=== PATIENT | female | born 1990 | race Caucasian/White ===

== ENCOUNTER 2024-09-20 15:52 | Outpatient (CLI) | payer BC, SELFPAY ==
--- NOTE | 2024-09-20 16:00 | CRLHL7_ITS ---
For Patients: As a result of the Cures Act, medical imaging exams and procedure reports are released immediately into your electronic medical record. You may view this report before your referring provider. If you have questions, please contact your health care provider. OB ULTRASOUND INDICATION: Dating and viability. TECHNIQUE: Real time grayscale imaging of the fetus was performed. Transvaginal. LMP: 07/25/2024. IRENE by LMP: 05/01/2025. GA: 8 w, 1 d. Previous US: No. CRL: 2.0 cm. 8 w 4 d. IRENE: 04/28/2025. FHR: 173 BPM. Gestational sac: 3.7 cm. Appears within normal limits. Yolk sac: 2.4 mm. Appears within normal limits. Right ovary: 3.8 x 1.9 x 1.9 cm. CL. Left ovary: 2.1 x 1.4 x 1.2 cm. IMPRESSION: Single living intrauterine with sonographic gestational age 8 weeks 4 days and sonographic due date 04/28/2025. Evan Alvarez M.D. Diagnostic Radiologist [email or web address]/Dictated by: Evan Alvarez MD @ 09/21/2024 8:27:00 AM (Electronically Signed)
== END 2024-09-20 15:53 | disposition home or self-care (01) ==
PROVIDERS: PCP Family Medicine; Visit Provider Registered Nurse
DX: Z34.91 Encounter for supervision of normal pregnancy, unspecified, first trimester (principal); Z3A.08 8 weeks gestation of pregnancy
CPT/HCPCS: 76817

== ENCOUNTER 2024-09-20 16:36 | Outpatient (CLI) | payer BC, SELFPAY ==
[2024-09-23 08:36] LABS: HPV Source Cervix; HPV, High Risk by TMA Not Detected
== END 2024-09-20 16:37 | disposition home or self-care (01) ==
PROVIDERS: PCP Family Medicine; Visit Provider Registered Nurse
DX: Z34.81 Encounter for supervision of other normal pregnancy, first trimester (principal); Z67.30 Type AB blood, Rh positive
CPT/HCPCS: 83020; 83021; 84443; 85660; 86592; 86703; 86704; 86706; 86762; 86787; 86803; 86850; 86900; 86901; 87086; 87340; 87624; 87625; 88141; 88142

== ENCOUNTER 2024-11-14 09:47 | Outpatient (CLI) | payer BC, SELFPAY | END 2024-11-14 09:48 | disposition home or self-care (01) | LOC: NFLDREF 11-18 01:34 | PROVIDERS: PCP Family Medicine; Referring Provider Family Medicine; Visit Provider Midwife | DX: O99.282 Endocrine, nutritional and metabolic diseases complicating pregnancy, second trimester (principal); E03.9 Hypothyroidism, unspecified; Z3A.16 16 weeks gestation of pregnancy | CPT/HCPCS: 84443 ==

== ENCOUNTER 2024-11-30 17:00 | Outpatient (CLI) | payer BC, SELFPAY | END 2024-11-30 17:01 | disposition home or self-care (01) | LOC: NFLDREF 17:02 | PROVIDERS: PCP Family Medicine; Visit Provider Advanced Practice Midwife | DX: Z34.92 Encounter for supervision of normal pregnancy, unspecified, second trimester (principal); R53.83 Other fatigue | CPT/HCPCS: 82728 ==

== ENCOUNTER 2024-12-12 07:07 | Outpatient (CLI) | payer BC, SELFPAY ==
--- NOTE | 2024-12-12 07:15 | CRLHL7_ITS ---
For Patients: As a result of the 21st Century Cures Act, medical imaging exams and procedure reports are released immediately into your electronic medical record. You may view this report before your referring provider. If you have questions, please contact your health care provider. OB ULTRASOUND SURVEY IRENE by LMP: 05/01/2025. GA: 20 w, 0 d. INDICATION: BFAS. TECHNIQUE: Real time grayscale imaging of the fetus was performed. Evaluate anatomy. Transabdominal imaging performed. position: Multiple positions. Cervix: Visualized. Technique: Transabdominal. Length of closed cervix: 4.6 cm. Placenta/cord: Fundal. Technique: Transabdominal. Placenta tip to internal OS: 8.8 cm. Umbilical Cord: 3-vessel cord. Placenta insertion: Central. Amniotic Fluid: 4 cm SDP (greater than/equal to: 2- less than 8 cm). SURVEY: Observed Structures. Calvarium/Spine: Cerebellum: 2 cm, 20 w 3 d. Cisterna Magna: 4.3 mm. Nuchal Fold: 4.3 mm. Lateral Ventricle: 7.6 mm. CSP: Yes. Midline Falx: Yes. Choroid Plexus: Yes. Spine: Yes. Abdomen: Stomach: Yes. Abd Cord Insertion: Yes. Urinary Bladder: Yes. Kidneys: Yes. Diaphragm: Yes. Face: Nose/lips: Yes. Orbital view: Yes. Profile: Yes. Limbs: Upper Extremities: Yes. Lower Extremities: Yes. Hands: Yes. Feet: Yes. Vascular: 4-Chamber Heart: Yes. LVOT: Yes. RVOT: Yes. 3VV: Yes. 3VTV: Yes. BPD: 4.8 cm. 20 w, 4 d, 72 percent. HC: 17.8 cm. 20 w, 2 d, 54 percent. AC: 16 cm. 21 w, 1 d, 78 percent. FL: 3.2 cm. 20 w, 1 d, 46 percent. FL/AC ratio: 20.30 percent. HC/AC ratio: 1.11. heart rate: 134 bpm. age by this US: 20 w, 4 d. IRENE by this US: 04/27/2025. EFW: 364 g. Weight: 13 oz. Percentile by IRENE: 78 percent. IMPRESSION: 1. Concordance of clinical and sonographic dating. 2. Normal anatomic survey. Evan Alvarez M.D. Diagnostic Radiologist [email or web address] [email or web address]/[email or web address] jj/Dictated by: Evan Alvarez MD @ 12/12/2024 9:14:00 AM (Electronically Signed)
== END 2024-12-12 07:08 | disposition home or self-care (01) ==
LOC: US 07:08
PROVIDERS: PCP Family Medicine; Visit Provider Midwife
DX: Z34.92 Encounter for supervision of normal pregnancy, unspecified, second trimester (principal); Z3A.20 20 weeks gestation of pregnancy
CPT/HCPCS: 76805

== ENCOUNTER 2025-01-09 08:19 | Outpatient (CLI) | payer BC, SELFPAY | END 2025-01-09 08:20 | disposition home or self-care (01) | PROVIDERS: PCP Family Medicine; Visit Provider Midwife | DX: E03.9 Hypothyroidism, unspecified (principal); R53.83 Other fatigue; F41.9 Anxiety disorder, unspecified | CPT/HCPCS: 84439; 84443; 84481 ==

== ENCOUNTER 2025-02-06 10:29 | Outpatient (CLI) | payer BC, SELFPAY | END 2025-02-06 10:30 | disposition home or self-care (01) | LOC: NFLDREF 02-09 16:54 | PROVIDERS: PCP Family Medicine; Referring Provider Family Medicine; Visit Provider Midwife | DX: Z34.92 Encounter for supervision of normal pregnancy, unspecified, second trimester (principal) | CPT/HCPCS: 86592 ==

== ENCOUNTER 2025-03-21 14:14 | Outpatient (CLI) | payer BC, SELFPAY | END 2025-03-21 14:15 | disposition home or self-care (01) | PROVIDERS: PCP Family Medicine; Visit Provider Advanced Practice Midwife | DX: E03.9 Hypothyroidism, unspecified (principal) | CPT/HCPCS: 84439; 84443; 84481 ==

== ENCOUNTER 2025-04-03 15:43 | Outpatient (CLI) | payer BC, SELFPAY ==
[2025-04-04 14:49] LABS: Strep B DNA Probe Negative (Negative)
[2025-04-04 14:56] LABS: Strep B Susceptibility Needed? No
== END 2025-04-03 15:44 | disposition home or self-care (01) ==
LOC: NFLDREF 15:44
PROVIDERS: PCP Family Medicine; Visit Provider Advanced Practice Midwife
DX: Z34.93 Encounter for supervision of normal pregnancy, unspecified, third trimester (principal)
CPT/HCPCS: 87081; 87653

== ENCOUNTER 2025-04-17 14:10 | Outpatient (CLI) | payer BC, SELFPAY ==
[2025-04-17 14:37] VITALS: BP 117/56; PULSE 67; PULSE 70; O2SAT 95
[2025-04-17] MEDS: TERBUTALINE 1 MG/ML INJ 0.25 MG SUBCUT (15:32)
--- NOTE | 2025-04-17 18:01 | PM.PROC ---
Procedure Note Date Seen: 04/17/25 Date of procedure: 04/17/25 Will [facility] bill your pro fee for this procedure?: Yes Pre-op diagnosis: 1. 38 0/7 weeks gestation. 2. yoan breech presentation. Post-op diagnosis: other (1. 38 0/7 weeks gestation. 2. Vertex presentation.) Procedure: External cephalic version. Procedure Description: FINDINGS: Nonstress test: heart rate baseline 150 beats per minute, good variability, 15 x 15 accelerations present, no decelerations, category 1. Limited OB ultrasound using transabdominal transducer: Single, living, intrauterine gestation in a yoan breech presentation with the head in the maternal right upper quadrant, back along the maternal left, grossly normal amniotic fluid volume, fundal placenta. PROCEDURE NOTE: A nonstress test was performed, which was reactive and reassuring. A limited OB ultrasound was performed at the bedside to determine position. Findings noted above. Informed consent was obtained for external cephalic version. Terbutaline 0.25 mg was administered to the patient subcutaneously. External cephalic version was attempted. I applied downward pressure to the head, Jaimee Steen CNM applied upward pressure to the breech, and we attempted to gently coax the fetus in a backward roll in a counter-clockwise direction. This attempt was successful. heart tones were noted to be normal following the successful external cephalic version. The patient tolerated the procedure well. monitoring after the procedure was continued to be reassuring. Anesthesia: none Surgeon: Angelia Cortes MD Foreign Language Teacher: Jaimee Steen Condition: stable Disposition: same day
--- NOTE | 2025-04-17 18:39 | PC.OBNST ---
NST Note NST Note Start: 04/17/25 14:16 Freq: ONCE Status: Active Protocol: Document 04/17/25 18:25 MARTHA (Rec: 04/17/25 18:39 MARTHA No Response) NST Note 3 Para (# of births) 2 EDC 05/01/25 Gestational Age In 38 Weeks & 0 Days Weeks & Days Patient Presented Other with Complaint(s) of Other Complaints ECV Reactive Yes Appropriate for Yes Gestational Age OLIVIA Bowman, RNC Date 04/17/25 Reactive Yes Appropriate for Yes Gestational Age OLIVIA Haynes, RNC Date 04/17/25 OB NST charge Yes Complete NST Note Yes via Write Note The provider's electronic signature indicates the NST is reactive/appropriate for gestational age. *Note to provider: If an addendum is required, open the patient's chart and click on the note under the Nurse/Allied Health tab.
== END 2025-04-17 18:32 | disposition home or self-care (01) ==
LOC: OB 17:10 → OB CLI 17:17 → OB 17:17
PROVIDERS: PCP Family Medicine; Visit Provider Obstetrics & Gynecology
DX: O32.1XX0 Maternal care for breech presentation, not applicable or unspecified (principal); Z3A.38 38 weeks gestation of pregnancy
CPT/HCPCS: 59025; 59412; G0463; J3105

== ENCOUNTER 2025-04-24 10:17 | Inpatient (IN) | payer BC, SELFPAY ==
[2025-04-24] VITALS (52 sets, daily range): BP systolic 98–132; BP diastolic 51–83; PULSE 40–181; RESP 18–20; TEMP 36.4–37; O2SAT 77–100
--- NOTE | 2025-04-24 10:20 | W.PM.LDBA ---
Subjective History of Present Illness Date Seen: 04/24/25 Narrative: Patient is being admitted to Labor and Delivery for active labor. She is a 34 year old at 39 0/7 weeks gestation. Her full history and physical was dictated by Radha HOLLY on 04/10/2025. Please see this for details. She is supported in her labor by Abel. Contractions were irregular through the night. They have picked up intensity since 3 AM. No LOF, vaginal bleeding or concerns about movement. Specific Issues/Plans : Abel Kids: Simon Lindsey 3 P 2001 H&P done by Karen Lima CNM on 04/10/25 Ask about AMTSL and pp BC # Hypothyroidism. Currently taking levothyroxine 100 mcg Thursday through and 50 mcg Thursday through Thursday as well as Liothyronine 10mg daily. TSH ordered. TSH at 16 week visit: Dose changed to 100 mcg daily 11/17 (recheck in 6w) TSH at 24w visit: o.613. No dose change TSH 3rd trimester (34w): # OCD and anxiety. Well managed with fluvoxamine 100mg daily. History of anxiety. Consider increasing dose in the 3rd trimester. Increased Fluvoxamine to 150 mg 03/21, can increase to 200 mg if needed. # Right inguinal lymphadenopathy present. Stable, mobile, nontender. # Varicella nonimmune. Recommend vaccine. # Unstable lie-Breech at 38.0 weeks. ECV scheduled. oblique at 32 weeks, vertex but high in pelvis at 34 Imaginst tri US: 09/20/24 Single living intrauterine with sonographic gestational age 8 weeks 4 days and sonographic due date 04/28/2025. Vaccinations: COVID: 03/07/25 Flu: 03/07/25 Tdap: [] RSV: 03/07/25 32 week mental health: [] Last pap: At 1st OB OB - Problem Based A/P Additional Plan (1) Active labor at term: Status: Acute (2) Supervision of other normal : Status: Acute Plan ASSESSMENT:?? 34 at 39 0/7 weeks gestation?? complicated by:??OCD and anxiety, breech presentation (successful version), hypothyroidism Labor type: spontaneous, Active labor?? Category 2 FHR pattern.??? Labor complicated by: none?? GBS negative? PLAN:?? 1. Routine intrapartum cares as ordered. Continue with expectant management?? 2. Monitoring per policy, continuous, until criteria met for intermittent management 3. Planning unmedicated . Candidate for analgesia of choice.??? 4. Patient encouraged to reposition and ambulate to promote physiologic labor and .?? 5. Anticipate ? OB Exam Physical Exam Vital signs: Pulse BP Pulse Ox 78 125/60 96 04/24/25 09:50 04/24/25 09:50 04/24/25 09:43 Narrative: Vitals Reviewed Constitutional:? Alert and oriented x3 HEENT:? Normocephalic, atraumatic Neck:? Supple Lungs:? Clear to auscultation bilaterally Heart:? Regular rate and rhythm, no murmur, rub or gallop Abdomen:? Soft, nontender, and gravid. Vertex by Justen's, confirmed with bedside US. Extremities:? No edema or erythema Cervix: 6 cm/90%/-2 station/vertex NST: 135 bpm/moderate variability/accelerations present/variable deceleration x 1/contractions noted irreg
[2025-04-24] MEDS: LACTATED RINGERS 1000 ML 1,000 ML 1200 ML IV ×2 (10:57→11:46)
[2025-04-24 11:03] LABS: Hematocrit* 39.9 % (33.0-51.0); Hemoglobin* 13.7 gm/dL (12.0-16.0); Immature Granulocytes Pct Auto 0.4 %; Mean Corpuscular HGB Conc 34 gm/dL (32-36); Mean Corpuscular Hemoglobin 31 pg (26-34); Mean Corpuscular Volume 90 fL (80-100); RDW Coefficient of Variation % 13.0 % (11.5-15.5); Red Blood Count* 4.42 m/uL (4.00-5.20); White Blood Count* 11.26 K/uL (4.50-11.00)
[2025-04-24 11:06] LABS: Immature Granulocytes Abs Auto 0.00 K/uL (0.00-0.30); Lymphocytes Absolute Auto 1.30 K/uL (0.90-2.90); Slide Review Reflex No
[2025-04-24] MEDS: ROPIVACAINE 0.2% 100 ml 100 ML 12 MG EPIDURAL (11:33)
[2025-04-24] MEDS: LIDOCAINE 2% (PF) 5 ML VIAL EPIDURAL (11:33)
--- NOTE | 2025-04-24 11:52 | PM.ANBPRC ---
[facility] Medical History PCOS (polycystic ovarian syndrome) ?E28.2 - Polycystic ovarian syndrome (ICD-10) Hypothyroid ?E03.9 - Hypothyroidism, unspecified (ICD-10) Anxiety and depression ?F41.9 - Anxiety disorder, unspecified (ICD-10) ?F32.A - Depression, unspecified (ICD-10) OCD (obsessive compulsive disorder) ?F42.9 - Obsessive-compulsive disorder, unspecified (ICD-10) Insomnia ?G47.00 - Insomnia, unspecified (ICD-10) Anemia ?D64.9 - Anemia, unspecified (ICD-10) depression ?F53.0 - depression (ICD-10) Low ferritin ?R79.0 - Abnormal level of blood mineral (ICD-10) Family History Mother Arthritis Thyroid disease Grandmother Heart disease COPD (chronic obstructive pulmonary disease) Other Stroke Social History What is your current living situation?: I presently have a place to live Problems where you live: pests, such as bugs, ants, or mice In the past 12 months, utilities in danger of being shut off: no In past 12 months, lack of transportation kept you from medical appts, meetings, work, or getting things needed for daily living: no In the past 12 mos, have been you worried that your food would run out before you had money to buy more?: never true In the past 12 mos, the food you bought just didn't last and you didn't have money to buy more?: never true Smoking Status: Never smoker How often does anyone, including family, friends and others, physically hurt you: never How often does anyone, including family, friends and others, insult or talk down to you: never How often does anyone, including family, friends and others, threaten you with harm: never How often does anyone, including family, friends and others, scream or curse at you: never Health Related Social Needs: Inadequate housing (Z59.1) Meds Home Medications and Allergies Home Medications ?Medication ?Instructions ?Recorded ?Confirmed ?Type cholecalciferol (vitamin D3) 75 75 mcg PO QDAY 09/20/24 04/24/25 History mcg (3,000 unit) tablet docosahexaenoic acid 200 mg 200 mg PO QDAY 09/20/24 04/24/25 History capsule ( DHA) mv-min-vit C 1,000 mg-elderberry 1 ea PO QDAY 09/20/24 04/24/25 History 50 mg-herb 35.5mg effervescent tablet (Airborne Elderberry) levothyroxine 100 mcg tablet 100 mcg PO QDAY #90 tabs 11/17/24 04/24/25 Rx cyanocobalamin-liver extract tablet 1 tab PO QDAY 12/12/24 04/24/25 History fluvoxamine 100 mg tablet 100 mg PO QPM #90 tabs 02/06/25 04/24/25 Rx liothyronine 5 mcg tablet 5 mcg PO BID #180 tabs 02/13/25 04/24/25 Rx fluvoxamine 50 mg tablet 50 mg PO QDAY #60 tabs 03/21/25 04/24/25 Rx magnesium glycinate 200 mg PO QDAY 03/21/25 04/24/25 History Allergies Allergy/AdvReac Type Severity Reaction Status Date / Time No Known Drug Allergies Allergy Verified 04/17/25 14:23 Results Labs Labs: Laboratory Results - last 24 hr 04/24/25 10:55 WBC 11.26 H RBC 4.42 Hgb 13.7 Hct 39.9 MCV 90 MCH 31 MCHC 34 RDW Coeff of Michelle 13.0 Plt Count 186 Neut % (Auto) 78.8 H Lymph % (Auto) 11.7 L Smyth % (Auto) 8.3 Eos % (Auto) 0.5 Baso % (Auto) 0.3 Neut # (Auto) 8.90 H Lymph # (Auto) 1.30 Smyth # (Auto) 0.90 Eos # (Auto) 0.10 Baso # (Auto) 0.00 Abs Immat Gran (auto) 0.00 Imm/Tot Granulo (auto) 0.4 Vital Signs Vital Signs: Last Vital Signs Pulse 73 04/24/25 11:52 BP 117/65 04/24/25 11:52 Pulse Ox 100 04/24/25 11:51 Weight: 79.379 kg Anesthesia Procedures Epidural Insertion Patient Location: OB Start Time: 11:15 Stop Time: 11:50 Start Date: 04/24/25 Stop Date: 04/24/25 Reason for Block: procedure for pain Patient Position: sitting Performed By: Shira Parks Preanesthetic Checklist: IV checked, site marked, risks and benefits discussed, monitors and equipment checked, pre-op evaluation, timeout performed and anesthesia consent Prep: chlorhexidine gluconate Monitoring: blood pressure monitoring, continuous pulse oximetry and heart rate Approach: midline Vertebral Space: lumbar (1-5) Epidural Technique: SANDI saline Needle Type: Tuohy needle Injection Technique: continuous catheter Needle gauge: 17 Needle Length (cm): 10 cm Needle Insertion Depth (cm): 6 Catheter Gauge: 19 Catheter Type: multi-orifice Catheter at skin depth (cm): 14 Test Dose Result: negative and lidocaine 1.5% with epinephrine 1 to 200,000
--- NOTE | 2025-04-24 13:46 | W.PM.OBVAGDE ---
OB Procedure Vag Delivery Mother Details Mother Details: The patient is a 34 year-old, 3, Para 2, admitted on 04/24/25 at 39 0/7 weeks gestation. Admission Date: 04/24/25 Additional Details Amniotic Membrane Status: SROM (with VE when complete) Amniotic Membrane Rupture Date: 04/24/25 Amniotic Membrane Rupture Time: 13:14 Amniotic Membrane Fluid Description: Clear Analgesia/Anesthesia Type: Epidural Waterbirth: No Pitcoin: No Intrapartal Events: None Labor Onset: 03:00 Complete: 13:11 Pushin:11 Heart: heart tones during second stage were cat 2 with some variables. Moderate variability through out and short 2nd stage. Delivery Details Delivery Date: 04/24/25 Delivery Time: 13:23 Route of delivery: Gender: Male Viability: Alive; Heart Rate Present Position at Delivery: OA Delivery Details: Patient was admitted for?active labor?and progressed beautifully. she has had natural labor in the past and this time wanted an epidural. She was just feeling like she wasn't in the right mood for it today. She received a successful epidural. SROM with VE at complete dilation noted at?1311?with clear fluid. Patient was complete at?1311?and?pushing?at?1311. of?a viable?male at?1323?in Left lateral. Vertex?delivered?OA. No nuchal cord or shoulder dystocia.?Body?delivered easily and without incident.?Infant?passed to?mothers?abdomen with a vigorous cry. Cord was clamped and cut at > 5 minutes. APGARS were?8?at one minute and?9?at five?minutes?respectively.?Mouth?was bulb?suctioned by nursing. Intact placenta with a?3 vessel?cord delivered spontaneously at?1330. Fundus firm. 1st degree perineal laceration identified?and oozing, repaired in typical fashion. QBL?100?cc. Mother and baby stable; mother plans to breastfeed. Infant weight pending.? ? 1 Minute Interval Total Score: 8 5 Minute Interval Total Score: 9 Additional Details Shoulder Dystocia: No Placenta Delivery Time: 13:30 Placental Delivery Description: Spontaneous Delivery repair: Vicryl Procedure Done: Global Blood Loss: 100 Laceration: Perineal - 1st Degree (repaired for hemostasis with 3-0 vicryl) Episiotomy Description: None Blood Loss Measurement Type: QBL (100) Bakri Used: No Sponge/Need Count Correct: Yes Cord Vessel Description: 3 Vessels Event Summary Status: Mother and infant were stable after delivery. Disposition: floor
[2025-04-24] MEDS: IBUPROFEN 600 MG TABLET PO ×2 (16:07→22:03)
[2025-04-24] MEDS: ACETAMINOPHEN 500 MG TABLET 1000 MG PO (17:53)
[2025-04-25] MEDS: ACETAMINOPHEN 500 MG TABLET 1000 MG PO ×3 (00:05→11:57)
[2025-04-25 00:20] VITALS: BP 93/56; PULSE 67; RESP 16; TEMP 36.6; O2SAT 96
[2025-04-25] MEDS: IBUPROFEN 600 MG TABLET PO ×2 (04:12→10:05)
[2025-04-25 04:27] VITALS: BP 108/67; PULSE 64; RESP 16; TEMP 36.5; O2SAT 97
--- NOTE | 2025-04-25 07:07 | PM.OBDSVD1 ---
DS: Providers Provider Date Seen: 04/25/25 Date of admission: 04/24/25 10:17 Primary care physician: Jessica Aleman DO Admitting Clinician: Dorota Moreno CNM Attending Physician on discharge: Jaimee Steen APRN, CNM DS: Diagnosis Discharge Diagnosis (1) care and examination immediately after delivery: Status: Acute (2) Lactating mother: Status: Acute (3) Anxiety and depression: Status: Acute (4) OCD (obsessive compulsive disorder): Status: Acute (5) Hypothyroid: Status: Acute Exam Narrative: Exam Narrative: GENERAL APPEARANCE:? normal affect, alert, no distress MOOD:? appropriate CHEST:? clear to auscultation HEART:? regular rate and rhythm ABDOMEN:? soft, non-tender the uterine fundus is At Umbilicus, Midline and is appropriate for the stage of recovery. PERINEUM:? mild edema of the perineum, there is a Perineal Laceration,?1st degree, that is healing well. EXTREMITIES:? normal and no edema Const: Vital Signs, click to edit/add: Vital Signs - 24 hr 04/24/25 09:38 04/24/25 09:43 04/24/25 09:50 Temperature Pulse Rate Pulse Rate [Pulse Oximeter] Respiratory Rate Blood Pressure 125/60 Blood Pressure [Ri ght Arm] Pulse Oximetry 98 96 Oxygen Delivery Me thod 04/24/25 09:50 04/24/25 11:21 04/24/25 11:26 Temperature Pulse Rate 78 Pulse Rate [Pulse Oximeter] Respiratory Rate Blood Pressure Blood Pressure [Ri ght Arm] Pulse Oximetry 100 100 Oxygen Delivery Me thod 04/24/25 11:31 04/24/25 11:36 04/24/25 11:41 Temperature Pulse Rate Pulse Rate [Pulse Oximeter] Respiratory Rate Blood Pressure Blood Pressure [Ri ght Arm] Pulse Oximetry 100 100 100 Oxygen Delivery Me thod 04/24/25 11:42 04/24/25 11:42 04/24/25 11:44 Temperature Pulse Rate 75 Pulse Rate [Pulse Oximeter] Respiratory Rate Blood Pressure 132/83 114/64 Blood Pressure [Ri ght Arm] Pulse Oximetry Oxygen Delivery Me thod 04/24/25 11:44 04/24/25 11:46 04/24/25 11:46 Temperature Pulse Rate 80 89 Pulse Rate [Pulse Oximeter] Respiratory Rate Blood Pressure 115/66 Blood Pressure [Ri ght Arm] Pulse Oximetry Oxygen Delivery Me thod 04/24/25 11:46 04/24/25 11:48 04/24/25 11:48 Temperature Pulse Rate 99 Pulse Rate [Pulse Oximeter] Respiratory Rate Blood Pressure 121/61 Blood Pressure [Ri ght Arm] Pulse Oximetry 100 Oxygen Delivery Me thod 04/24/25 11:50 04/24/25 11:50 04/24/25 11:51 Temperature Pulse Rate 77 Pulse Rate [Pulse Oximeter] Respiratory Rate Blood Pressure 123/67 Blood Pressure [Ri ght Arm] Pulse Oximetry 100 Oxygen Delivery Me thod 04/24/25 11:52 04/24/25 11:52 04/24/25 11:54 Temperature Pulse Rate 73 Pulse Rate [Pulse Oximeter] Respiratory Rate Blood Pressure 117/65 123/64 Blood Pressure [Ri ght Arm] Pulse Oximetry Oxygen Delivery Me thod 04/24/25 11:54 04/24/25 11:56 04/24/25 11:56 Temperature Pulse Rate 77 80 Pulse Rate [Pulse Oximeter] Respiratory Rate Blood Pressure 122/68 Blood Pressure [Ri ght Arm] Pulse Oximetry Oxygen Delivery Me thod 04/24/25 11:56 04/24/25 11:58 04/24/25 11:58 Temperature Pulse Rate 85 Pulse Rate [Pulse Oximeter] Respiratory Rate Blood Pressure 117/74 Blood Pressure [Ri ght Arm] Pulse Oximetry 100 Oxygen Delivery Me thod 04/24/25 12:01 04/24/25 12:05 04/24/25 12:05 Temperature Pulse Rate 40 L Pulse Rate [Pulse Oximeter] Respiratory Rate Blood Pressure 122/73 Blood Pressure [Ri ght Arm] Pulse Oximetry 100 Oxygen Delivery Me thod 04/24/25 12:06 04/24/25 12:09 04/24/25 12:09 Temperature Pulse Rate 86 Pulse Rate [Pulse Oximeter] Respiratory Rate Blood Pressure 115/68 Blood Pressure [Ri ght Arm] Pulse Oximetry 100 Oxygen Delivery Me thod 04/24/25 12:11 04/24/25 12:16 04/24/25 12:16 Temperature Pulse Rate 85 Pulse Rate [Pulse Oximeter] Respiratory Rate Blood Pressure 123/75 Blood Pressure [Ri ght Arm] Pulse Oximetry 99 Oxygen Delivery Me thod 04/24/25 12:16 04/24/25 12:19 04/24/25 12:19 Temperature Pulse Rate 93 Pulse Rate [Pulse Oximeter] Respiratory Rate Blood Pressure 118/70 Blood Pressure [Ri ght Arm] Pulse Oximetry 100 Oxygen Delivery Me thod 04/24/25 12:21 04/24/25 12:30 04/24/25 12:31 Temperature Pulse Rate Pulse Rate [Pulse Oximeter] Respiratory Rate Blood Pressure Blood Pressure [Ri ght Arm] Pulse Oximetry 99 77 L 99 Oxygen Delivery Me thod 04/24/25 12:36 04/24/25 12:39 04/24/25 12:39 Temperature Pulse Rate 86 Pulse Rate [Pulse Oximeter] Respiratory Rate Blood Pressure 120/76 Blood Pressure [Ri ght Arm] Pulse Oximetry 100 Oxygen Delivery Me thod 04/24/25 12:41 04/24/25 12:46 04/24/25 12:51 Temperature Pulse Rate Pulse Rate [Pulse Oximeter] Respiratory Rate Blood Pressure Blood Pressure [Ri ght Arm] Pulse Oximetry 99 100 99 Oxygen Delivery Me thod 04/24/25 12:53 04/24/25 12:53 04/24/25 12:56 Temperature Pulse Rate 80 Pulse Rate [Pulse Oximeter] Respiratory Rate Blood Pressure 117/71 Blood Pressure [Ri ght Arm] Pulse Oximetry 92 Oxygen Delivery Me thod 04/24/25 12:57 04/24/25 13:02 04/24/25 13:07 Temperature Pulse Rate Pulse Rate [Pulse Oximeter] Respiratory Rate Blood Pressure Blood Pressure [Ri ght Arm] Pulse Oximetry 99 100 100 Oxygen Delivery Me thod 04/24/25 13:08 04/24/25 13:08 04/24/25 13:30 Temperature 98.6 F Pulse Rate 98 Pulse Rate [Pulse Oximeter] Respiratory Rate 18 Blood Pressure 111/62 Blood Pressure [Ri ght Arm] Pulse Oximetry Oxygen Delivery Me thod 04/24/25 13:31 04/24/25 13:31 04/24/25 13:37 Temperature Pulse Rate 73 Pulse Rate [Pulse Oximeter] Respiratory Rate Blood Pressure 110/58 L 114/57 L Blood Pressure [Ri ght Arm] Pulse Oximetry Oxygen Delivery Me thod 04/24/25 13:37 04/24/25 13:37 04/24/25 13:52 Temperature Pulse Rate 78 Pulse Rate [Pulse Oximeter] Respiratory Rate 18 Blood Pressure 112/59 L Blood Pressure [Ri ght Arm] Pulse Oximetry Oxygen Delivery Me thod 04/24/25 13:52 04/24/25 13:52 04/24/25 14:07 Temperature Pulse Rate 74 Pulse Rate [Pulse Oximeter] Respiratory Rate 18 Blood Pressure 114/68 Blood Pressure [Ri ght Arm] Pulse Oximetry Oxygen Delivery Me thod 04/24/25 14:07 04/24/25 14:07 04/24/25 14:22 Temperature Pulse Rate 71 Pulse Rate [Pulse Oximeter] Respiratory Rate 18 Blood Pressure 113/60 Blood Pressure [Ri ght Arm] Pulse Oximetry Oxygen Delivery Me thod 04/24/25 14:22 04/24/25 14:22 04/24/25 14:37 Temperature Pulse Rate 72 Pulse Rate [Pulse Oximeter] Respiratory Rate 18 Blood Pressure 111/61 Blood Pressure [Ri ght Arm] Pulse Oximetry Oxygen Delivery Me thod 04/24/25 14:37 04/24/25 14:37 04/24/25 14:53 Temperature Pulse Rate 64 Pulse Rate [Pulse Oximeter] Respiratory Rate 18 Blood Pressure 113/73 Blood Pressure [Ri ght Arm] Pulse Oximetry Oxygen Delivery Me thod 04/24/25 14:53 04/24/25 14:53 04/24/25 15:08 Temperature Pulse Rate 81 Pulse Rate [Pulse Oximeter] Respiratory Rate 18 Blood Pressure 98/51 L Blood Pressure [Ri ght Arm] Pulse Oximetry Oxygen Delivery Me thod 04/24/25 15:08 04/24/25 15:08 04/24/25 15:22 Temperature Pulse Rate 71 Pulse Rate [Pulse Oximeter] Respiratory Rate 18 Blood Pressure 99/55 L Blood Pressure [Ri ght Arm] Pulse Oximetry Oxygen Delivery Me thod 04/24/25 15:22 04/24/25 15:22 04/24/25 15:37 Temperature 98.6 F Pulse Rate 71 Pulse Rate [Pulse Oximeter] Respiratory Rate 18 Blood Pressure Blood Pressure [Ri ght Arm] Pulse Oximetry Oxygen Delivery Me thod 04/24/25 15:38 04/24/25 15:38 04/24/25 21:08 Temperature 97.6 F Pulse Rate 90 Pulse Rate [Pulse Oximeter] 67 Respiratory Rate 20 Blood Pressure 102/59 L Blood Pressure [Ri ght Arm] 112/62 Pulse Oximetry 98 Oxygen Delivery Me thod Room Air 04/25/25 00:20 04/25/25 04:27 Temperature 98 F 97.7 F Pulse Rate Pulse Rate [Pulse Oximeter] 67 64 Respiratory Rate 16 16 Blood Pressure Blood Pressure [Ri ght Arm] 93/56 L 108/67 Pulse Oximetry 96 97 Oxygen Delivery Me thod Room Air Room Air OB - DS: Summary Hospital Course Hospital Course: Brielle is a 34 y.o. G 3 P 3 who was admitted to [facility] for spontaneous onset of labor. ?She had a NVD that was uncomplicated. The patient feels well. ?The pain is well controlled with current medications. ?She has no new complaints. ?She is breast feeding and reports things are going well. the patient has done well.? Vitals have been stable.? She has remained afebrile.? Has a good appetite, is tolerating a general diet. ?She is voiding without difficulty.? She is passing gas and has not had a bowel movement.? She is ambulating and denies any dizziness.? Has small amount of rubra lochia. Problems: none Discharge home with baby.? Follow up in 2 weeks and 6 weeks.? , may see if needed? Hgb 13.7. ?? Hypothyroid. Return to Levothyroxine 50 mcg - and 100 mcg -; Continue liothyronine 10 mcg daily Anxiety/OCD. Increased Fluvoxamine to 200 mg, recommended to take in 100 mg dose BID. Rx sent to pharmacy. For pain control of perineum, breast and pelvic pain, take 600 mg Ibuprofen every 6 hours as needed by mouth or 1000 mg acetaminophen (Tylenol) every 6 hours by mouth as needed. You can alternate these so you are taking something every 3 hours as needed. A heating pad can also be used for your abdomen or breasts. You may also take docusate sodium up to twice daily to soften your stools and help to prevent constipation. You may wean off of it when your stools return to normal.? Peripartum Data Infant delivery method: Vaginal Laceration description: Perineal - 1st Degree complications: none Gender: Male Infant Discharge Plan: Home Status at Discharge Functional status at discharge: independent ambulation Overall status at discharge: patient is progressing back to baseline Time Spent with Patient Time attestation: Total time spent providing and/or coordinating discharge services: Time spent: Less than 30 minutes Discharge Plan Discharge Disposition: Home, Self-Care Date of Admission: 04/24/25 10:17 Attending Provider on Discharge: Jaimee Steen Primary Care Provider: Jessica Aleman Condition: Stable Anticipated Discharge Date/Time: 04/25/25 14:00 Discharge Medications: New acetaminophen 500 mg Tablet 1,000 mg PO Q6H PRNQty: 0 0RF docusate sodium 100 mg Capsule 100 mg PO DAILY Qty: 60 0RF ibuprofen 600 mg Tablet 600 mg PO Q6H PRNQty: 60 0RF levothyroxine 50 mcg tablet See Rx Instructions .ROUTE .COMPLEX Qty: 90 1RF Rx Instructions: Take 2 tabs (100 mcg) daily on Thursday thru ; Take 1 tab (50 mcg) daily on Thursday thru Thursday. Continued DHA 200 mg capsule 200 mg PO QDAY cholecalciferol (vitamin D3) 75 mcg (3,000 unit) tablet 75 mcg PO QDAY Airborne Elderberry 1,000 mg-50 mg-35.5 mg tablet, effervescent 1 ea PO QDAY cyanocobalamin-liver extract Tablet 1 tab PO QDAY magnesium glycinate 100 mg magnesium capsule 200 mg PO QDAY liothyronine 5 mcg tablet 5 mcg PO BID Qty: 180 0RF Changed fluvoxamine 100 mg tablet 100 mg PO BID Qty: 90 0RF Discontinued fluvoxamine 50 mg tablet 50 mg PO QDAY Qty: 60 0RF Rx Instructions: Take with 100 mg for total of 150 mg. levothyroxine 100 mcg tablet 100 mcg PO QDAY Qty: 90 1RF Discharge Orders: Discharge Order (Routine); Ordered 04/25/25 Ordered By: Jaimee Steen Patient Education: OB Over the Counter Medication Information, OB Vaginal/Breast Feeding Additional Instructions: Discharge instructions were reviewed with the patient including signs and symptoms of infection and home going medications Nothing vaginally for 6 weeks: no tampons or intercourse Do not drive while taking narcotic pain medication(s) Off Work or School for 6 weeks 2-week visit: discuss infant feeding concerns, review control options and screen for anxiety/depression. 6-week visit for an annual exam. consultation services are available to all mothers and babies for the first year after delivery.? To make an appointment, please call [phone]. Activity Level: Activity as Tolerated Discharge Diet: Regular Follow Up Appointments: [facility] [Provider Group] Forms: [employer] Info Instructions
[2025-04-25] MEDS: DOCUSATE SODIUM 100 MG CAPSULE PO (07:43)
[2025-04-25 07:52] VITALS: BP 110/75; PULSE 80; RESP 16; TEMP 36.7; O2SAT 97
[2025-04-25 12:37] VITALS: BP 97/52; PULSE 66; RESP 16; TEMP 36.9; O2SAT 97
--- NOTE | 2025-04-25 13:07 | PM.ANPOST ---
Post Anesthesia Note Post Anesthesia Note Patient seen: Inpatient Respiratory Status: adequate Cardiovascular Status: adequate Mental Status: baseline Pain: adequate Temp: baseline Anesthetic awareness: N/A Complications: none Follow care: none
== END 2025-04-25 14:50 | disposition home or self-care (01) | DRG 560 ==
LOC: OB OUT 10:18 → OB 10:18
PROVIDERS: Admitting Provider Midwife; PCP Family Medicine; Visit Provider Midwife
DX: O70.0 First degree perineal laceration during delivery (principal); O99.344 Other mental disorders complicating childbirth; F41.9 Anxiety disorder, unspecified; F42.9 Obsessive-compulsive disorder, unspecified; F32.A Depression, unspecified; O99.284 Endocrine, nutritional and metabolic diseases complicating childbirth; E03.9 Hypothyroidism, unspecified; Z79.899 Other long term (current) drug therapy; Z79.890 Hormone replacement therapy; Z37.0 Single live birth; Z3A.39 39 weeks gestation of pregnancy
CPT/HCPCS: 01967; 36415; 76815; 85025; 86592; A9270; J2795; J7120